=== PATIENT | male | born 1970 ===

== ENCOUNTER 2017-04-10 10:20 | Emergency (ER) | payer OTHER ==
[2017-04-10 10:25] VITALS: BP 125/73; PULSE 67; RESP 20; TEMP 97.9; O2SAT 98
--- NOTE | 2017-04-10 10:50 | C.PDOC ---
History Of Present Illness 46 y/o male patient with no significant PMHx presents to the ED for evaluation of a "whooshing" sensation felt inside his right ear which began around 1 week ago. Patient states he was unable to present sooner due to work-related reasons. He denies fever, chills, ear pain, ear discharge, and trauma/injury to the affected area. Time Seen by Provider: 04/10/17 10:39 Chief Complaint (Nursing): ENT Problem History Per: Patient History/Exam Limitations: None Onset/Duration Of Symptoms: Days (1 week ) Current Symptoms Are (Timing): Still Present Quality (Ear): denies: Pain W/Touch, Discharge Pain Scale Rating Of: 0 Past Medical History Reviewed: Historical Data, Nursing Documentation, Vital Signs Vital Signs: Last Vital Signs Temp 97.9 F 04/10/17 10:21 Pulse 67 04/10/17 10:21 Resp 20 04/10/17 10:21 BP 125/73 04/10/17 10:21 Pulse Ox 98 04/10/17 11:05 - Medical History PMH: No Chronic Diseases Surgical History: No Surg Hx Family History: States: Unknown Family Hx - Social History Hx Alcohol Use: Yes Hx Substance Use: No - Immunization History Hx Tetanus Toxoid Vaccination: No Hx Influenza Vaccination: No Hx Pneumococcal Vaccination: No Review Of Systems Constitutional: Negative for: Fever, Chills ENT: Positive for: Other (+"whooshing" sound in right ear. no trauma/injury to site ). Negative for: Ear Pain, Ear Discharge Physical Exam - Physical Exam Appears: Non-toxic, No Acute Distress Skin: Normal Color, Warm, Dry Head: Atraumatic Eye(s): bilateral: Normal Inspection Ear(s): Left: Normal (canal and TM WNL ), Right: Other (+dry, impacted cerumen visualized ) Nose: Normal Oral Mucosa: Moist Throat: Normal, No Erythema, No Exudate Neck: Supple Extremity: Normal ROM Neurological/Psych: Normal Speech, Normal Cognition Gait: Steady ED Course And Treatment O2 Sat by Pulse Oximetry: 98 (on RA) Pulse Ox Interpretation: Normal Medical Decision Making Medical Decision Making: Impression: 46y/o male c/o "whooshing" sound in R ear Plan: * Debrox Ear Drops * reassess and disposition Progress: Patient received Debrox . Tolerated well. On reassessment, patient is resting comfortably, showing no signs of distress and is stable for discharge. Patient is advised to follow up with his PMD within 1-2 days for further evaluation and/or return to the ED if symptoms worsen. Disposition Counseled Patient/Family Regarding: Diagnosis, Need For Followup, Rx Given - Disposition Referrals: Clinic,Med Surg [Primary Care Provider] - [facility] [Outside] Disposition: HOME/ ROUTINE Disposition Time: 11:04 Condition: STABLE Additional Instructions: Use la medicina indira se indica. Siga con el especialista si es necesario. Instructions: Cerumen Impaction (ED) Forms: Gen Discharge Inst Welsh - POA Present On Arrival: None - Clinical Impression Clinical Impression: Excessive cerumen in right ear canal - Scribe Statement The provider has reviewed the documentation as recorded by the Scribe (Juli Suarez) Provider Attestation: All medical record entries made by the Scribe were at my direction and personally dictated by me. I have reviewed the chart and agree that the record accurately reflects my personal performance of the history, physical exam, medical decision making, and the department course for this patient. I have also personally directed, reviewed, and agree with the discharge instructions and disposition.
== END 2017-04-10 11:12 | disposition home or self-care (01) ==
LOC: SUPCPDRO 10:20 → C.ER 10:20
DX: H61.21 Impacted cerumen, right ear (principal)